=== PATIENT | female | born 1960 | race Caucasian/White ===

== ENCOUNTER 2019-02-09 10:01 | Day surgery (SDC) | payer BC ==
[2019-02-09] MEDS ORDERED: MIDAZOLAM 1 MG/ML 2 ML INJ ×2 (11:18)
[2019-02-09] MEDS ORDERED: FENTAnyl 50 MCG/ML VIAL (11:19)
== END 2019-02-09 11:38 | disposition home or self-care (01) ==
LOC: GIL 10:01
DX: Z12.11 Encounter for screening for malignant neoplasm of colon (principal); K64.4 Residual hemorrhoidal skin tags
CPT/HCPCS: 45378